=== PATIENT | male | born 1955 | race Caucasian/White ===

== ENCOUNTER 2017-06-20 18:28 | Emergency (ER) | payer OTHER ==
[~2017-06-20] VITALS: Ht 177.8 cm; Wt 113.4 kg
[2017-06-20 18:30] VITALS: BP 154/80
[2017-06-20 19:09] LABS: HEMATOCRIT 44.5 % (42.0-52.0); HEMOGLOBIN 15.3 g/dl (14.0-18.0); MEAN CELL VOLUME 90.8 fl (80.0-94.0); MEAN CORPUSCULAR HGB 31.2 pg (27.0-31.0); MEAN CORPUSCULAR HGB CONC 34.4 g/dl (33.0-37.0); MEAN PLATELET VOLUME 9.1 fl (9.6-12.3); PLATELET COUNT AUTOMATED 238 10*3/uL (130-400); RED CELL DISTRI WIDTH 13.1 % (0-14.5); WHITE BLOOD COUNT 11.2 10*3/uL (4.8-10.8)
[2017-06-20 19:26] LABS: ALBUMIN 3.3 gm/dl (3.1-4.5); ALKALINE PHOSPHATASE 76 U/L (45-117); BUN 17 mg/dl (7-24); CHLORIDE 106 mmol/L (98-107); CREATININE 0.87 mg/dL (0.70-1.30); POTASSIUM 3.7 mmol/L (3.5-5.1); SGOT/AST 36 IU/L (3-35); SGPT/ALT 46 U/L (12-78); SODIUM 144 mmol/L (136-145); TOTAL PROTEIN 7.1 gm/dL (6.4-8.2)
[2017-06-20 19:35] LABS: BASOPHILS 2 % (0-1); TOTAL CELLS COUNTED 100 #CELLS
[2017-06-20 19:36] LABS: PLATELET SUFFICIENCY NORMAL (NORMAL)
== END 2017-06-20 19:27 | disposition left against medical advice (07) ==
LOC: ED 18:28 → EDHOLD 19:20 → ED 19:27
PROVIDERS: Physician Assistant
DX: F10.129 Alcohol abuse with intoxication, unspecified (principal); F17.200 Nicotine dependence, unspecified, uncomplicated; I25.10 Atherosclerotic heart disease of native coronary artery without angina pectoris; Z88.8 Allergy status to other drugs, medicaments and biological substances; Y90.9 Presence of alcohol in blood, level not specified

== ENCOUNTER 2017-06-28 20:47 | Inpatient (IN) | payer OTHER ==
[~2017-06-28] VITALS: Ht 177.8 cm; Wt 88.1 kg
[2017-06-28 20:47] VITALS: BP 121/65
[2017-06-28] MEDS ORDERED: BENADRYL ALLERG25 M5 PO (21:00)
[2017-06-28] MEDS ORDERED: COZAAR100 MG PO (21:00)
[2017-06-28] MEDS ORDERED: PRILOSEC20 M1 PO (21:01)
[2017-06-28] MEDS ORDERED: NATURE'S BLEND F1 MG PO (21:01)
[2017-06-28] MEDS ORDERED: ASPIR LOW81 MG PO (21:02)
[2017-06-28] MEDS ORDERED: EFFIENT10 M1 PO (21:02)
[2017-06-28] MEDS ORDERED: ZETIA10 MG PO (21:02)
[2017-06-28] MEDS ORDERED: LIPITOR40 MG PO (21:03)
[2017-06-28] MEDS ORDERED: COREG12.5 M1 PO (21:03)
[2017-06-28] MEDS ORDERED: PROZAC40 M1 PO (21:03)
[2017-06-28 22:14] LABS: BASO # 0.1 10*3/uL (0.0-0.1); BASO % 0.4 % (0.0-1.0); EOS # 0.2 10*3/uL (0.0-0.4); EOS % 1.9 % (1.0-4.0); HEMATOCRIT 40.6 % (42.0-52.0); HEMOGLOBIN 14.2 g/dl (14.0-18.0); LYMPH # 4.7 10*3/uL (1.3-4.4); LYMPH % 39.1 % (27.0-41.0); MEAN CELL VOLUME 92.1 fl (80.0-94.0); MEAN CORPUSCULAR HGB 32.2 pg (27.0-31.0); MEAN PLATELET VOLUME 9.7 fl (9.6-12.3); MONO # 1.3 10*3/uL (0.1-1.0); MONO % 10.5 % (3.0-9.0); NEUT # 5.7 10*3/uL (2.3-7.9); NEUT % 47.7 % (47.0-73.0); PLATELET COUNT AUTOMATED 188 10*3/uL (130-400); RED BLOOD COUNT 4.41 10*6/uL (4.50-5.90); RED CELL DISTRI WIDTH 13.3 % (0-14.5); WHITE BLOOD COUNT 11.9 10*3/uL (4.8-10.8)
[2017-06-28 22:33] LABS: BILIRUBIN NEGATIVE (NEGATIVE); BLOOD NEGATIVE (NEGATIVE); CLARITY CLEAR (CLEAR); COLOR YELLOW (YELLOW); GLUCOSE NEGATIVE (NEGATIVE); KETONE NEGATIVE (NEGATIVE); LEUKO ESTERASE NEGATIVE (NEGATIVE); NITRITE NEGATIVE (NEGATIVE); PH 6.5 (5.0-9.0); SPECIFIC GRAVITY <= 1.005 (1.005-1.030); UROBILINOGEN 0.2 E.U./dl (0.2-1.0)
[2017-06-28 22:44] LABS: URINE AMPHETAMINES < 1000 (1000ng/ml); URINE BARBITURATES < 200 (200ng/ml); URINE BENZODIAZEPINES < 200 (200ng/ml); URINE CANNABINOIDS (THC) < 50 (50ng/ml); URINE COCAINE < 300 (300ng/ml); URINE METHADONE < 300 (300ng/ml); URINE OPIATES < 300 (300ng/ml)
[2017-06-28 22:46] LABS: URINE PHENCYCLIDINE < 25 (25ng/ml)
[2017-06-28 22:46] LABS: ALBUMIN 3.2 gm/dl (3.1-4.5); ALKALINE PHOSPHATASE 75 U/L (45-117); BUN 15 mg/dl (7-24); CHLORIDE 106 mmol/L (98-107); POTASSIUM 3.8 mmol/L (3.5-5.1); SGOT/AST 30 IU/L (3-35); SGPT/ALT 40 U/L (12-78); SODIUM 141 mmol/L (136-145); TOTAL PROTEIN 6.7 gm/dL (6.4-8.2)
[2017-06-28 23:00] VITALS: BP 128/64
[2017-06-28] MEDS ORDERED: DULER200 INH (23:41)
[2017-06-29 08:00] VITALS: BP 188/98
[2017-06-29 16:00] VITALS: BP 170/90
[2017-06-29 20:00] VITALS: BP 170/90
[2017-06-30] VITALS: BP 156/80
[2017-06-30 07:56] VITALS: BP 180/92
[2017-06-30 13:01] VITALS: BP 140/76
[2017-06-30 16:30] VITALS: BP 150/78
[2017-06-30 16:32] VITALS: BP 154/72
[2017-06-30 20:00] VITALS: BP 168/74
[2017-07-01] VITALS: BP 160/90
[2017-07-01 07:05] LABS: BASO # 0.1 10*3/uL (0.0-0.1); BASO % 0.5 % (0.0-1.0); EOS # 0.2 10*3/uL (0.0-0.4); EOS % 2.4 % (1.0-4.0); HEMATOCRIT 40.7 % (42.0-52.0); HEMOGLOBIN 13.8 g/dl (14.0-18.0); LYMPH # 3.8 10*3/uL (1.3-4.4); LYMPH % 39.1 % (27.0-41.0); MEAN CORPUSCULAR HGB 31.9 pg (27.0-31.0); MEAN CORPUSCULAR HGB CONC 33.9 g/dl (33.0-37.0); MEAN PLATELET VOLUME 10.1 fl (9.6-12.3); MONO # 1.1 10*3/uL (0.1-1.0); MONO % 11.8 % (3.0-9.0); NEUT # 4.5 10*3/uL (2.3-7.9); NEUT % 45.9 % (47.0-73.0); PLATELET COUNT AUTOMATED 161 10*3/uL (130-400); RED BLOOD COUNT 4.33 10*6/uL (4.50-5.90); RED CELL DISTRI WIDTH 13.6 % (0-14.5); WHITE BLOOD COUNT 9.7 10*3/uL (4.8-10.8)
[2017-07-01 07:21] LABS: CREATININE 0.78 mg/dL (0.70-1.30)
[2017-07-01 08:00] VITALS: BP 159/86
[2017-07-01 12:00] VITALS: BP 169/84
[2017-07-01 16:00] VITALS: BP 166/79
[2017-07-01 20:00] VITALS: BP 166/79
[2017-07-02] VITALS: BP 153/80
[2017-07-02 08:00] VITALS: BP 144/77
[2017-07-02] MEDS ORDERED: TRAZODONE50 MG PO (11:20)
== END 2017-07-02 11:34 | disposition home or self-care (01) | DRG 897 ==
LOC: ED 20:47 → 4E 22:03 → EDHOLD 22:03 → 4E 22:35
PROVIDERS: Internal Medicine; Physician Assistant
DX: F10.229 Alcohol dependence with intoxication, unspecified (principal); E44.1 Mild protein-calorie malnutrition; F33.9 Major depressive disorder, recurrent, unspecified; F10.239 Alcohol dependence with withdrawal, unspecified; I25.10 Atherosclerotic heart disease of native coronary artery without angina pectoris; K21.9 Gastro-esophageal reflux disease without esophagitis; I73.9 Peripheral vascular disease, unspecified; E78.2 Mixed hyperlipidemia; D72.821 Monocytosis (symptomatic); Z72.0 Tobacco use; Z88.8 Allergy status to other drugs, medicaments and biological substances; Z79.82 Long term (current) use of aspirin; Z79.899 Other long term (current) drug therapy; I25.2 Old myocardial infarction; Z90.49 Acquired absence of other specified parts of digestive tract; Z95.818 Presence of other cardiac implants and grafts; Z82.49 Family history of ischemic heart disease and other diseases of the circulatory system; Z68.27 Body mass index [BMI] 27.0-27.9, adult